=== PATIENT | male | born 1995 ===

== ENCOUNTER 2021-06-17 18:10 | Emergency (ER) | payer SELFPAY ==
[2021-06-17] MEDS ORDERED: SODIUM CHLORIDE 0.9% 1000 ML 1,000 ML IV ONE (18:13)
[2021-06-17] MEDS ORDERED: ZIPRASIDONE MESYLATE 20 MG VIAL IM ONE (18:13)
[2021-06-17] MEDS ORDERED: KETAMINE 500 MG/5 ML VIAL MDV ONE (18:20)
[2021-06-17] MEDS ORDERED: KETAMINE 500 MG/5 ML VIAL MDV IM ONE (18:28)
[2021-06-17] MEDS ORDERED: MIDAZOLAM 5 MG/5 ML INJ MDV IV ONE (18:39)
[2021-06-17] MEDS: MIDAZOLAM 5 MG/5 ML INJ MDV IV NR ×2 (18:59→20:02)
[2021-06-17] MEDS ORDERED: LACTATED RINGERS 1,000 ML IV ONE (19:01)
--- NOTE | 2021-06-17 19:06 | Emergency Department Report ---
ED Altered Mental Status HPI - General Chief Complaint: Psych Stated Complaint: METH OD Time Seen by Provider: 06/17/21 18:12 Source: EMS Mode of arrival: Ambulatory Limitations: Altered Mental Status - History of Present Illness Initial Comments: Patient was brought in by EMS secondary to altered mental status. He apparently was [place] the [place] [address] and running [place] the interstate. He was attempting to get into people's cars. He was standing on vehicles. He was being chased by EMS and police. This is the second time that EMS had responded on him today. Earlier in the day, the patient had refused treatment and transport. The family had reported he had been using methamphetamine. EMS was called today with this last event. Ultimately, the patient was apprehended. He was restrained and brought here. He was agitated. He would not provide any cogent history. He kept writhing and moaning. He kept grunting and straining against restraints. EMS had not administered any sedatives upon arrival. Patient cannot provide any history. When I conversed with him in's limited Cameroonian, he will answer questions but th ey appear to be nonsensical. - Related Data Allergies Allergy/AdvReac Type Severity Reaction Status Date / Time Unable to Assess Allergy Verified 06/17/21 18:12 ED Review of Systems ROS: Stated complaint: METH OD Other details as noted in HPI Comment: Unobtainable due to pts medical conditions (Altered mental status) ED Past Medical Hx - Past Medical History Additional medical history: Cannot be obtained secondary to altered mental status - Surgical History Additional Surgical History: Cannot be obtained secondary to altered mental status - Family History Family history: other (Cannot be obtained secondary to altered mental status) - Social History Substance Use Type: Other (Cannot be obtained secondary to altered mental status) ED Physical Exam - General Limitations: Altered Mental Status, Other (Patient is restless and agitated. He is altered. He speaks some in Cameroonian and some Montenegrin, but will not answer questions cogently. He is writhing and straining against restraints. He is diaphoretic.) General appearance: alert, appears intoxicated (Patient admits to ice) - Head Head exam: Present: atraumatic, normocephalic - Eye Eye exam: Present: normal appearance, PERRL, EOMI. Absent: scleral icterus - ENT ENT exam: Present: mucous membranes dry, normal external ear exam - Neck Neck exam: Present: normal inspection. Absent: meningismus - Respiratory Respiratory exam: Present: normal lung sounds bilaterally. Absent: respiratory distress - Cardiovascular Cardiovascular Exam: Present: normal rhythm, tachycardia - GI/Abdominal GI/Abdominal exam: Present: soft. Absent: distended - Extremities Exam Extremities exam: Present: normal capillary refill, other (Multiple skin e xcoriations from abrasions and picking at his skin) - Back Exam Back exam: Present: normal inspection - Neurological Exam Neurological exam: Present: alert, altered, other (Moves all extremities equally. He has psychomotor agitation) - Psychiatric Psychiatric exam: Present: other (agitated delirium) - Skin Skin exam: Present: diaphoretic, other (Hot) ED Course Vital Signs 06/17/21 06/17/21 06/17/21 19:00 19:07 19:16 Temperature Pulse Rate 129 H 131 H 121 H Respiratory 21 22 21 Rate Blood Pressure 112/55 Blood Pressure 115/53 [Left] O2 Sat by Pulse 97 97 97 Oximetry 06/17/21 06/17/21 06/17/21 19:26 19:30 19:46 Temperature 98.7 F Pulse Rate 113 H 111 H Respiratory 19 19 Rate Blood Pressure 100/43 104/43 Blood Pressure [Left] O2 Sat by Pulse 98 98 Oximetry 06/17/21 06/17/21 06/17/21 20:00 20:16 20:30 Temperature Pulse Rate 115 H 113 H 111 H Respiratory 22 21 22 Rate Blood Pressure 108/60 103/33 98/35 Blood Pressure [Left] O2 Sat by Pulse 83 L 95 95 Oximetry 06/17/21 06/17/21 06/17/21 20:46 21:00 21:16 Temperature Pulse Rate 109 H 102 H 100 H Respiratory 20 19 19 Rate Blood Pressure 84/39 95/37 87/34 Blood Pressure [Left] O2 Sat by Pulse 96 95 96 Oximetry 06/17/21 06/17/21 06/17/21 21:50 22:00 22:16 Temperature Pulse Rate 105 H 88 91 H Respiratory 21 14 18 Rate Blood Pressure Blood Pressure [Left] O2 Sat by Pulse 100 98 Oximetry 06/17/21 06/17/21 06/17/21 22:30 22:46 23:00 Temperature Pulse Rate 92 H 92 H 88 Respiratory 17 15 15 Rate Blood Pressure Blood Pressure [Left] O2 Sat by Pulse 97 96 98 Oximetry - Reevaluation(s) Reevaluation #1: 06/17/21 19:05 EMS have been met upon arrival. Patient did require physical restraint while here. This was carried over from EMS transport. Patient was given Geodon 20 mg IM, followed by ketamine 300 mg IM, followed by Versed 3 mg IV. He finally began to calm down and improve with this round of sedation. Patient was placed on a monitor tech. He was tachycardic. He was placed on oxygen. Labs were ordered. Patient was placed on a 2013 because I do believe that he is incapacitated and intoxicated from drugs at this time. Old records reviewed. Reevaluation #2: 06/17/21 21:47 Labs have been reviewed. Talk screen was negative. Despite this, I do believe that the patient is suffering from an intoxicant like methamphetamine. He stated he was using meth or ice. Family had reported he had been doing methamphetamine. CT was noted. Reading is pending, but there is no obvious intracranial bleed. We will continue sedation and observation when the patient is more sober. Reevaluation #3: 06/17/21 23:35 Patient is now improving. He has slept. He is now conversant and able to make sense. He is cogent. He has no recollection of what happened. He does state that his sister will come get him he thinks. We will call her. Patient states that he is not having any pain. He admits that he was doing drugs but will not elaborate. - Lab Data Result diagrams: 06/17/21 19:09 06/17/21 19:09 Lab Results 06/17/21 06/17/21 06/17/21 Range/Units 19:09 19:09 19:09 WBC 15.6 H (4.5-11.0) K/mm3 RBC 4.55 (3.65-5.03) M/mm3 Hgb 14.3 (11.8-15.2) gm/dl Hct 40.9 (35.5-45.6) % MCV 90 (84-94) fl MCH 32 (28-32) pg MCHC 35 H (32-34) % RDW 13.1 L (13.2-15.2) % Plt Count 241 (140-440) K/mm3 Lymph % (Auto) 3.8 L (13.4-35.0) % [place] % (Auto) 5.9 (0.0-7.3) % Eos % (Auto) 0.1 (0.0-4.3) % Baso % (Auto) 0.3 (0.0-1.8) % Lymph # (Auto) 0.6 L (1.2-5.4) K/mm3 [place] # (Auto) 0.9 H (0.0-0.8) K/mm3 Eos # (Auto) 0.0 (0.0-0.4) K/mm3 Baso # (Auto) 0.0 (0.0-0.1) K/mm3 Seg Neutrophils % 89.9 H (40.0-70.0) % Seg Neutrophils # 14.0 H (1.8-7.7) K/mm3 Sodium 142 (137-145) mmol/L Potassium 3.1 L (3.6-5.0) mmol/L Chloride 107.1 H (98-107) mmol/L Carbon Dioxide 19 L (22-30) mmol/L Anion Gap 19 mmol/L BUN 10 (9-20) mg/dL Creatinine 1.1 (0.8-1.3) mg/dL Estimated GFR > 60 ml/min BUN/Creatinine Ratio 9 % Glucose 101 H (75-100) mg/dL Calcium 8.5 (8.4-10.2) mg/dL Total Bilirubin 1.20 (0.1-1.2) mg/dL AST 38 (5-40) units/L ALT 38 (7-56) units/L Alkaline Phosphatase 65 (35-129) units/L Total Creatine Kinase 577 H (55-170) units/L Troponin T < 0.010 (0.00-0.029) ng/mL Total Protein 6.2 L (6.3-8.2) g/dL Albumin 4.1 (3.9-5) g/dL Albumin/Globulin Ratio 2.0 % TSH 1.140 (0.270-4.200) mlU/mL Urine Color (Yellow) Urine Turbidity (Clear) Urine pH (5.0-7.0) Ur Specific [place] (1.003-1.030) Urine Protein (Negative) mg/dL Urine Glucose (UA) (Negative) mg/dL Urine Ketones (Negative) mg/dL Urine Blood (Negative) Urine Nitrite (Negative) Urine Bilirubin (Negative) Urine Ictotest (Negative) Urine Urobilinogen (<2.0) mg/dL Ur Leukocyte Esterase (Negative) Urine WBC (Auto) (0.0-6.0) /HPF Urine RBC (Auto) (0.0-6.0) /HPF Salicylates (2.8-20.0) mg/dL Urine Opiates Screen Urine Methadone Screen Acetaminophen (10.0-30.0) ug/mL Ur Barbiturates Screen Ur Phencyclidine Scrn Ur Amphetamines Screen U Benzodiazepines Scrn Urine Cocaine Screen U Marijuana (THC) Screen Drugs of Abuse Note Plasma/Serum Alcohol (0-0.07) % 06/17/21 06/17/21 06/17/21 Range/Units 19:09 19:09 19:09 WBC (4.5-11.0) K/mm3 RBC (3.65-5.03) M/mm3 Hgb (11.8-15.2) gm/dl Hct (35.5-45.6) % MCV (84-94) fl MCH (28-32) pg MCHC (32-34) % RDW (13.2-15.2) % Plt Count (140-440) K/mm3 Lymph % (Auto) (13.4-35.0) % [place] % (Auto) (0.0-7.3) % Eos % (Auto) (0.0-4.3) % Baso % (Auto) (0.0-1.8) % Lymph # (Auto) (1.2-5.4) K/mm3 [place] # (Auto) (0.0-0.8) K/mm3 Eos # (Auto) (0.0-0.4) K/mm3 Baso # (Auto) (0.0-0.1) K/mm3 Seg Neutrophils % (40.0-70.0) % Seg Neutrophils # (1.8-7.7) K/mm3 Sodium (137-145) mmol/L Potassium (3.6-5.0) mmol/L Chloride (98-107) mmol/L Carbon Dioxide (22-30) mmol/L Anion Gap mmol/L BUN (9-20) mg/dL Creatinine (0.8-1.3) mg/dL Estimated GFR ml/min BUN/Creatinine Ratio % Glucose (75-100) mg/dL Calcium (8.4-10.2) mg/dL Total Bilirubin (0.1-1.2) mg/dL AST (5-40) units/L ALT (7-56) units/L Alkaline Phosphatase (35-129) units/L Total Creatine Kinase (55-170) units/L Troponin T (0.00-0.029) ng/mL Total Protein (6.3-8.2) g/dL Albumin (3.9-5) g/dL Albumin/Globulin Ratio % TSH (0.270-4.200) mlU/mL Urine Color (Yellow) Urine Turbidity (Clear) Urine pH (5.0-7.0) Ur Specific [place] (1.003-1.030) Urine Protein (Negative) mg/dL Urine Glucose (UA) (Negative) mg/dL Urine Ketones (Negative) mg/dL Urine Blood (Negative) Urine Nitrite (Negative) Urine Bilirubin (Negative) Urine Ictotest (Negative) Urine Urobilinogen (<2.0) mg/dL Ur Leukocyte Esterase (Negative) Urine WBC (Auto) (0.0-6.0) /HPF Urine RBC (Auto) (0.0-6.0) /HPF Salicylates < 0.3 L (2.8-20.0) mg/dL Urine Opiates Screen Urine Methadone Screen Acetaminophen 5.0 L (10.0-30.0) ug/mL Ur Barbiturates Screen Ur Phencyclidine Scrn Ur Amphetamines Screen U Benzodiazepines Scrn Urine Cocaine Screen U Marijuana (THC) Screen Drugs of Abuse Note Plasma/Serum Alcohol < 0.01 (0-0.07) % 06/17/21 06/17/21 Range/Units 19:26 19:26 WBC (4.5-11.0) K/mm3 RBC (3.65-5.03) M/mm3 Hgb (11.8-15.2) gm/dl Hct (35.5-45.6) % MCV (84-94) fl MCH (28-32) pg MCHC (32-34) % RDW (13.2-15.2) % Plt Count (140-440) K/mm3 Lymph % (Auto) (13.4-35.0) % [place] % (Auto) (0.0-7.3) % Eos % (Auto) (0.0-4.3) % Baso % (Auto) (0.0-1.8) % Lymph # (Auto) (1.2-5.4) K/mm3 [place] # (Auto) (0.0-0.8) K/mm3 Eos # (Auto) (0.0-0.4) K/mm3 Baso # (Auto) (0.0-0.1) K/mm3 Seg Neutrophils % (40.0-70.0) % Seg Neutrophils # (1.8-7.7) K/mm3 Sodium (137-145) mmol/L Potassium (3.6-5.0) mmol/L Chloride (98-107) mmol/L Carbon Dioxide (22-30) mmol/L Anion Gap mmol/L BUN (9-20) mg/dL Creatinine (0.8-1.3) mg/dL Estimated GFR ml/min BUN/Creatinine Ratio % Glucose (75-100) mg/dL Calcium (8.4-10.2) mg/dL Total Bilirubin (0.1-1.2) mg/dL AST (5-40) units/L ALT (7-56) units/L Alkaline Phosphatase (35-129) units/L Total Creatine Kinase (55-170) units/L Troponin T (0.00-0.029) ng/mL Total Protein (6.3-8.2) g/dL Albumin (3.9-5) g/dL Albumin/Globulin Ratio % TSH (0.270-4.200) mlU/mL Urine Color [place] (Yellow) Urine Turbidity Slightly-cloudy (Clear) Urine pH 5.0 (5.0-7.0) Ur Specific [place] 1.028 (1.003-1.030) Urine Protein 100 mg/dl (Negative) mg/dL Urine Glucose (UA) Neg (Negative) mg/dL Urine Ketones 20 (Negative) mg/dL Urine Blood Neg (Negative) Urine Nitrite Neg (Negative) Urine Bilirubin Sm (Negative) Urine Ictotest Positive (Negative) Urine Urobilinogen 4.0 (<2.0) mg/dL Ur Leukocyte Esterase Neg (Negative) Urine WBC (Auto) < 1.0 (0.0-6.0) /HPF Urine RBC (Auto) < 1.0 (0.0-6.0) /HPF Salicylates (2.8-20.0) mg/dL Urine Opiates Screen Negative Urine Methadone Screen Negative Acetaminophen (10.0-30.0) ug/mL Ur Barbiturates Screen Negative Ur Phencyclidine Scrn Negative Ur Amphetamines Screen Negative U Benzodiazepines Scrn Negative Urine Cocaine Screen Negative U Marijuana (THC) Screen Negative Drugs of Abuse Note Disclamer Plasma/Serum Alcohol (0-0.07) % Rhythm strip: Sinus tachycardia without ectopy. Monitor observed 10 seconds. - EKG Data -: EKG Interpreted by 06/17/21 19:10 1904-EKG shows a sinus tachycardia at 129. QRS is normal at 87. QT corrected is normal at 167. Patient has no ST elevation to suggest STEMI. There is ST depression in 3 and aVF. There is T wave flattening in 2 and V6. There is no old EKG for comparison. - Radiology Data Radiology results: report reviewed - Medical Decision Making Patient presented with EMS secondary to altered mental status and severe agitation. He had an agitated delirium likely secondary to intoxicants. He had reportedly been doing methamphetamine or ice or something else. We are not certain. Regardless, there was no obvious metabolic derangement. He required multiple doses of sedatives and physical restraint to keep him calm. Patient ultimately was able to metabolize what ever he had ingested or smoked or shot up. His mentation cleared. He was conversant. His tachycardia resolved. He was not suicidal homicidal. Patient was subsequently discharged. We have advised him obviously to seek help to get off of street drugs. Critical Care Time: Yes (55 minutes exclusive of all procedures) Critical care attestation.: If time is entered above; I have spent that time in minutes in the direct care of this critically ill patient, excluding procedure time. ED Disposition Clinical Impression: Agitation, Tachycardia, Delirium, Substance abuse Disposition: 01 HOME / SELF CARE / HOMELESS Is pt being admited?: No Condition: Stable Instructions: Substance Use Disorder Additional Instructions: Drink plenty water. Return for problems. Follow-up with your family doctor for recheck. Stop using street drugs. Referrals: PRIMARY CARE, [Primary Care Provider] - 3-5 Days SIRIA YU MD [Staff Physician] - 3-5 Days
[2021-06-17 19:24] LABS: Basophils % (Auto) 0.3 % (0.0-1.8); Eosinophils % (Auto) 0.1 % (0.0-4.3); Hematocrit 40.9 % (35.5-45.6); Hemoglobin 14.3 gm/dl (11.8-15.2); Lymphocytes # (Auto) 0.6 K/mm3 (1.2-5.4); Lymphocytes % (Auto) 3.8 % (13.4-35.0); Mean Corpuscular HGB Conc 35 % (32-34); Mean Corpuscular Volume 90 fl (84-94); Monocytes # (Auto) 0.9 K/mm3 (0.0-0.8); Monocytes % (Auto) 5.9 % (0.0-7.3); Platelet Count 241 K/mm3 (140-440); Red Blood Count 4.55 M/mm3 (3.65-5.03); Red Cell Distribution Width 13.1 % (13.2-15.2)
[2021-06-17 19:44] LABS: Alanine Aminotransferase 38 units/L (7-56); Albumin 4.1 g/dL (3.9-5); BUN/Creatinine Ratio 9; Blood Urea Nitrogen 10 mg/dL (9-20); Calcium 8.5 mg/dL (8.4-10.2); Hemolysis Index 22
[2021-06-17 20:16] LABS: Bilirubin,Urine SM (Negative); Blood,Urine NEG (Negative); Color,Urine Amber (Yellow); RBC,Urine < 1.0 /HPF (0.0-6.0)
[2021-06-17 20:21] LABS: WBC,Urine < 1.0 /HPF (0.0-6.0)
[2021-06-17 20:25] LABS: Ictotest,Urine Positive (Negative)
[2021-06-17 20:27] LABS: Amphetamine Screen,Urine Negative; Benzodiazepines Screen,Urine Negative; Cannabinoid Screen,Urine Negative; Cocaine Screen,Urine Negative; Methadone Screen,Urine Negative; Opiate Screen,Urine Negative
[2021-06-17] MEDS ORDERED: HALOPERIDOL LACTATE 5 MG/1 ML INJ ONE (20:58)
[2021-06-17] MEDS ORDERED: HALOPERIDOL LACTATE 5 MG/1 ML INJ IV ONE (20:59)
[2021-06-17] MEDS ORDERED: D5W/0.45% NACL/KCL 10 MEQ 10 MEQ/1,000 ML BAG IV SCH (21:30)
--- NOTE | 2021-06-17 21:52 | Cat Scan Report ---
CT BRAIN: 06/17/2021 INDICATION / CLINICAL INFORMATION: Altered mental status, agitation. Technologist note:PATIENT COMBATIVE, BEST IMAGES POSSIBLE. COMPARISON: None available. FINDINGS: BRAIN/INTRACRANIAL STRUCTURES: Unenhanced CT images of the brain demonstrate no evidence of acute abn ormality. Ventricles and sulci are normal in size and shape. There is no evidence of hemorrhage or mass. There are no abnormal extra-axial fluid collections. Because of difficulties with patient positioning, the inferior most aspect of the cerebellum has not been imaged as part of this exam. EXTRACRANIAL STRUCTURES: Unremarkable. IMPRESSION: No evidence of acute abnormality. All CT scans at this location are performed using dose reduction to ALARA by means of automated expos ure control. Signer Name: Julius Rdz MD Signed: 06/17/2021 9:47 PM Workstation Name: [id number]
--- NOTE | 2021-06-18 10:14 | Electrocardiograph Report ---
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
[2021-06-18 11:37] VITALS: BP 112/66
== END 2021-06-18 11:39 | disposition home or self-care (01) ==
LOC: ED 18:10
DX: R41.0 Disorientation, unspecified (principal); R00.0 Tachycardia, unspecified; R45.1 Restlessness and agitation; F19.10 Other psychoactive substance abuse, uncomplicated
CPT/HCPCS: 36415; 70450; 80053; 80307; 81001; 82550; 84443; 84484; 85025; 93005; 93010; 96361; 96372; 96374; 96375; 99284; J1630; J2250; J3480; J3490; J7030; 80320; Q0162; G0480